=== PATIENT | male | born 1935 | race Hispanic/Latino ===

== ENCOUNTER 2017-05-24 10:59 | Emergency (ER) | payer MEDICARE, OTHER ==
[2017-05-24 11:36] VITALS: RESP 18; TEMP 98.6; O2SAT 98; BMI 26.6
--- NOTE | 2017-05-24 11:36 | ED PDOC ---
Arrival/HPI - General Chief Complaint: Abnormal Skin Integrity Time Seen by Provider: 05/24/17 11:27 Historian: Patient - History of Present Illness Narrative History of Present Illness (Text): 05/24/17 11:27 A 82 year old male, with no significant past medical history, is presenting to the emergency department with a wound to his right wrist. The patient reports that he tripped while at the gas station and scraped his wrist on the door. The patient denies severe pain to the wound, fever, chest pain, dizziness, or any other complaints at this time. 05/24/17 11:36 Time/Duration: Prior to Arrival Symptom Onset: Other Symptom Course: Unchanged Quality: Other Activities at Onset: Light Context: Walking, Tripped Past Medical History - Provider Review Nursing Documentation Reviewed: Yes - Infectious Disease Hx of Infectious Diseases: None - Tetanus Immunization Tetanus Immunization: Up to Date - Cardiac Hx Cardiac Disorders: Yes Hx Congestive Heart Failure: Yes Hx Hypertension: Yes - Pulmonary Hx Respiratory Disorders: No - Neurological Hx Neurological Disorder: No - HEENT Hx HEENT Disorder: Yes (wears glasses) - Renal Hx Renal Disorder: No - Endocrine/Metabolic Hx Endocrine Disorders: No - Hematological/Oncological Hx Blood Disorders: No - Integumentary Hx Dermatological Disorder: No - Musculoskeletal/Rheumatological Hx Musculoskeletal Disorders: Yes (NOSE FX) Hx Falls: Yes - Gastrointestinal Hx Gastrointestinal Disorders: Yes (right inguinal hernia) - Genitourinary/Gynecological Hx Genitourinary Disorders: Yes Hx Prostate Problems: Yes (prostate sx) - Psychiatric Hx Psychophysiologic Disorder: No Hx Depression: No Hx Emotional Abuse: No Hx Physical Abuse: No Hx Substance Use: No - Surgical History Hx Carotid Endarterectomy: Yes - Anesthesia Hx Anesthesia: Yes Hx Anesthesia Reactions: No Hx Malignant Hyperthermia: No - Suicidal Assessment Feels Threatened In Home Enviroment: No Family/Social History - Physician Review Nursing Documentation Reviewed: Yes Family/Social History: Unknown Family HX Smoking Status: Former Smoker Hx Alcohol Use: Yes (LAST DRINK WAS A CAN OF BEER 3 D AGO) Frequency of alcohol use: Socially Hx Substance Use: No Hx Substance Use Treatment: No Allergies/Home Meds Allergies/Adverse Reactions: Allergies No Known Allergies Allergy (Verified 12/22/16 17:13) Home Medications: Home Meds Medication Instructions Recorded Confirmed Rosuvastatin Calcium [Crestor] 10 mg PO DAILY 01/24/15 05/24/17 Propranolol [Inderal] 1 tab PO BID 05/24/17 05/24/17 Terazosin [Hytrin] 1 tab PO HS 05/24/17 05/24/17 Review of Systems - Physician Review All systems were reviewed & negative as marked: Yes - Review of Systems Constitutional: absent: Fevers Cardiovascular: absent: Chest Pain Neurological: absent: Dizziness Physical Exam Vital Signs Reviewed: Yes Vital Signs Temp Pulse Resp BP Pulse Ox 05/24/17 12:00 72 18 137/80 98 05/24/17 11:21 98.6 F 70 18 139/82 98 Temperature: Afebrile Blood Pressure: Normal Pulse: Regular Respiratory Rate: Normal Appearance: Positive for: Well-Appearing, Non-Toxic, Comfortable Pain Distress: None Mental Status: Positive for: Alert and Oriented X 3 - Systems Exam Head: Present: Atraumatic, Normocephalic Pupils: Present: PERRL Extroacular Muscles: Present: EOMI Conjunctiva: Present: Normal Mouth: Present: Moist Mucous Membranes Neck: Present: Normal Range of Motion Respiratory/Chest: Present: Clear to Auscultation, Good Air Exchange. No: Respiratory Distress, Accessory Muscle Use Cardiovascular: Present: Regular Rate and Rhythm, Normal S1, S2. No: Murmurs Abdomen: Present: Normal Bowel Sounds. No: Tenderness, Distention, Peritoneal Signs Back: Present: Normal Inspection Upper Extremity: Present: Normal Inspection, Other (Abrasion to the right wrist) . No: Cyanosis, Edema Lower Extremity: Present: Normal Inspection. No: Edema Neurological: Present: GCS=15, CN II-XII Intact, Speech Normal Skin: Present: Warm, Dry, Normal Color. No: Rashes Psychiatric: Present: Alert, Oriented x 3, Normal Insight, Normal Concentration Medical Decision Making ED Course and Treatment: 05/24/17 11:27 Impression: 82 year old male with wound to the right wrist. Differential Diagnosis included but are not limited to: Abrasion Plan: -- Reassess and disposition Prior Visits: Notes and results from previous visits were reviewed. On 12/22/16 patient was last seen in the emergency department for GI bleed and was hospitalized. Progress Notes: - Scribe Statement The provider has reviewed the documentation as recorded by the Alphonse Daniel Provider Scribe Attestation: All medical record entries made by the Scribe were at my direction and personally dictated by me. I have reviewed the chart and agree that the record accurately reflects my personal performance of the history, physical exam, medical decision making, and the department course for this patient. I have also personally directed, reviewed, and agree with the discharge instructions and disposition. Disposition/Present on Arrival - Present on Arrival Any Indicators Present on Arrival: No History of DVT/PE: No History of Uncontrolled Diabetes: No Urinary Catheter: No History of Decub. Ulcer: No History Surgical Site Infection Following: None - Disposition Have Diagnosis and Disposition been Completed?: Yes Diagnosis: Forearm abrasion Disposition: HOME/ ROUTINE Disposition Time: 11:30 Condition: GOOD Discharge Instructions (ExitCare): Abrasion (ED) Additional Instructions: Thank you for letting us take care of you today. Your provider was Dr. Mckinley. You were treated for forearm abrasion. The emergency medical care you received today was directed at your acute symptoms. If you were prescribed any medication, please fill it and take as directed. It may take several days for your symptoms to resolve. Return to the Emergency Department if your symptoms worsen, do not improve, or if you have any other problems. Please contact your doctor or call one of the physicians/clinics you have been referred to that are listed on the Patient Visit Information form that is included in your discharge packet. Bring any paperwork you were given at discharge with you along with any medications you are taking to your follow up visit. Our treatment cannot replace ongoing medical care by a primary care provider (PCP) outside of the emergency department. Thank you for allowing the [facility] team to be part of your care today. Keep the area clean and dry. Follow up with your doctor or the emergency room if you have any concerns. Referrals: [facility] Natty Reankita, [Primary Care Provider] - Follow up with primary
[2017-05-24 12:01] VITALS: BP 137/80; PULSE 72
== END 2017-05-24 12:01 | disposition home or self-care (01) ==
LOC: ED 10:59
DX: S50.811A Abrasion of right forearm, initial encounter (principal); W01.0XXA Fall on same level from slipping, tripping and stumbling without subsequent striking against object, initial encounter; Y93.01 Activity, walking, marching and hiking; Y92.524 Gas station as the place of occurrence of the external cause

== ENCOUNTER 2017-07-13 10:51 | Emergency (ER) | payer MEDICARE, OTHER ==
[2017-07-13 10:51] VITALS: BMI 25.4
[2017-07-13 11:02] VITALS: RESP 16; TEMP 97.8; O2SAT 98
--- NOTE | 2017-07-13 11:30 | ED PDOC ---
Arrival/HPI - General Chief Complaint: Trauma Time Seen by Provider: 07/13/17 11:26 Historian: Patient - History of Present Illness Narrative History of Present Illness (Text): 07/13/17 11:26 This 82 yo male presents to this ED c/o right knee pain, and left hand pain since yesterday. Patient stated he slipped and fell down on the floor. He said he was able to break the fall by placing hands down. He denies head injury , loc, dizziness, syncope, hip pain, or weakness. Time/Duration: Other (since yesterday) Quality: Aching Context: Home Past Medical History - Provider Review Nursing Documentation Reviewed: Yes - Infectious Disease Hx of Infectious Diseases: None - Tetanus Immunization Tetanus Immunization: Up to Date - Cardiac Hx Hypertension: Yes - Pulmonary Hx Chronic Obstructive Pulmonary Disease (COPD): Yes - Neurological Hx Neurological Disorder: No - HEENT Hx HEENT Disorder: Yes (wears glasses) - Renal Hx Renal Disorder: No - Endocrine/Metabolic Hx Endocrine Disorders: No - Hematological/Oncological Hx Blood Disorders: No - Integumentary Hx Dermatological Disorder: No - Musculoskeletal/Rheumatological Hx Musculoskeletal Disorders: Yes (NOSE FX) Hx Falls: Yes - Gastrointestinal Hx Gastrointestinal Disorders: Yes (right inguinal hernia) - Genitourinary/Gynecological Hx Genitourinary Disorders: Yes Hx Prostate Problems: Yes (prostate sx) - Psychiatric Hx Psychophysiologic Disorder: No Hx Depression: No Hx Emotional Abuse: No Hx Physical Abuse: No Hx Substance Use: No - Surgical History Hx Carotid Endarterectomy: Yes - Anesthesia Hx Anesthesia: Yes Hx Anesthesia Reactions: No Hx Malignant Hyperthermia: No - Suicidal Assessment Feels Threatened In Home Enviroment: No Family/Social History - Physician Review Nursing Documentation Reviewed: Yes Family/Social History: Other Smoking Status: Former Smoker Hx Alcohol Use: Yes (LAST DRINK WAS A CAN OF BEER 3 D AGO) Hx Substance Use: No Hx Substance Use Treatment: No Allergies/Home Meds Allergies/Adverse Reactions: Allergies No Known Allergies Allergy (Verified 07/13/17 11:02) Home Medications: Home Meds Medication Instructions Recorded Confirmed Rosuvastatin Calcium [Crestor] 10 mg PO DAILY 01/24/15 07/13/17 Propranolol [Inderal] 10 mg PO BID 05/24/17 07/13/17 Terazosin [Hytrin] 10 tab PO HS 05/24/17 07/13/17 Review of Systems - Review of Systems Constitutional: Normal. absent: Fatigue, Weight Change, Fevers Eyes: Normal ENT: Normal Respiratory: Normal. absent: SOB, Cough Cardiovascular: Normal. absent: Chest Pain, Palpitations Gastrointestinal: Normal. absent: Abdominal Pain, Nausea, Vomiting Genitourinary Male: Normal Musculoskeletal: Other (See hpi) Skin: Normal Neurological: Normal Endocrine: Normal Hemo/Lymphatic: Normal Psychiatric: Normal Physical Exam Vital Signs Temp Pulse Resp BP Pulse Ox 07/13/17 10:57 97.8 F 80 16 145/75 98 Temperature: Afebrile Blood Pressure: Normal Pulse: Regular Respiratory Rate: Normal Appearance: Positive for: Well-Appearing, Non-Toxic, Comfortable Pain Distress: None Mental Status: Positive for: Alert and Oriented X 3 - Systems Exam Head: Present: Atraumatic, Normocephalic, Other (no raccoon sign. nop bonner sign) Pupils: Present: PERRL Extroacular Muscles: Present: EOMI. No: Entrapment Conjunctiva: Present: Normal Ears: Present: Normal, NORMAL TM, Normal Canal, Other (no hemotympanum). No: Erythema Mouth: Present: Moist Mucous Membranes Pharnyx: Present: Normal. No: ERYTHEMA, EXUDATE, TONSILS ENLARGED Neck: Present: Normal Range of Motion. No: Meningeal Signs Respiratory/Chest: Present: Clear to Auscultation, Good Air Exchange. No: Respiratory Distress, Accessory Muscle Use Cardiovascular: Present: Regular Rate and Rhythm, Normal S1, S2. No: Murmurs Abdomen: Present: Normal Bowel Sounds. No: Tenderness, Distention, Peritoneal Signs Back: Present: Normal Inspection. No: CVA Tenderness, Midline Tenderness, Paraspinal Tenderness, Pain with Leg Raise Upper Extremity: Present: Normal Inspection, Normal ROM, NORMAL PULSES, Neurovascularly Intact, Capillary Refill < 2s, Other (Mild tenderness over the 1st metacarpal area. no ecchymosis or swelling). No: Cyanosis, Edema Lower Extremity: Present: NORMAL PULSES, Neurovascularly Intact, Capillary Refill < 2 s, Other ((+) righ knee is mild swollen, and tendern). No: Edema, CALF TENDERNESS Neurological: Present: GCS=15, CN II-XII Intact, Speech Normal, Motor Func Grossly Intact, Normal Sensory Function, Normal Cerebellar Funct, Gait Normal Skin: Present: Warm, Dry, Normal Color. No: Rashes Psychiatric: Present: Alert, Oriented x 3, Normal Insight, Normal Concentration Medical Decision Making ED Course and Treatment: 07/13/17 12:54 Re-evaluation. Patient feels better. Discussed results and plan with patient who expresses understanding. Counseling was provided regarding the diagnosis and prognosis. All questions answered and there is agreement with the plan to discharge home with instructions. Patient stable for discharge. Return if symptoms persist or worsen. Re-evaluation Time: 12:55 Reassessment Condition: Re-examined, Improved - RAD Interpretation Narrative RAD Interpretations (Text): 07/13/17 12:47 Accession No. : [id number] Patient Name / ID : JOHN MORELOS / [id number] Exam Date : 07/13/2017 12:10:05 ( Approved ) Study Comment : Sex / Age : M / 82Y Creator : Zohaib Arzola MD Dictator : Zohaib Arzola MD Skin Care Consultant : [employer] Rolling [employer] Operator : Zohaib Arzola MD Approver2 : Report Date : 07/13/2017 12:44:13 My Comment : PROCEDURE: Radiographs of the Lumbar Spine. HISTORY: pain COMPARISON: No prior. FINDINGS: BONES: Normal alignment. No listhesis. No fracture. DISC SPACES: Unremarkable. OTHER FINDINGS: None. IMPRESSION: Unremarkable radiographs of the lumbar spine. 07/13/17 12:48 [employer] Rolling Mill Operator : Zohaib Arzola MD Approver2 : Report Date : 07/13/2017 12:42:50 My Comment : PROCEDURE: Right Knee Radiographs. HISTORY: pain COMPARISON: None. FINDINGS: BONES: Normal. No fracture. 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 JOINT EFFUSION: None. OTHER FINDINGS: None. 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 07/13/17 12:48 Creator : Zohaib Arzola MD Dictator : Zohaib Arzola MD Skin Care Consultant : [employer] Rolling [employer] Operator : Zohaib Arzola MD Approver2 : Report Date : 07/13/2017 12:41:44 My Comment : PROCEDURE: Left Hand Radiographs. HISTORY: pain COMPARISON: None. FINDINGS: BONES: Normal. No fracture. JOINTS: Degenerative changes are seen at the base of the thumb SOFT TISSUES: Normal. OTHER FINDINGS: None. IMPRESSION: Degenerative changes at the base of the thumb Radiology Orders: 07/13/17 11:35 KNEE W PATELLA RIGHT 3 VIEW [RAD] Stat LS SPINE WITH OBL > 18 YRS OLD [RAD] Stat 07/13/17 11:36 HAND LEFT 3 VIEWS ROUTINE [RAD] Stat Disposition/Present on Arrival - Present on Arrival Any Indicators Present on Arrival: No History of DVT/PE: No History of Uncontrolled Diabetes: No Urinary Catheter: No History of Decub. Ulcer: No History Surgical Site Infection Following: None - Disposition Have Diagnosis and Disposition been Completed?: Yes Diagnosis: Effusion, right knee, Knee pain, Back pain, Hand pain, left Disposition: HOME/ ROUTINE Disposition Time: 12:57 Patient Plan: Discharge Condition: GOOD Discharge Instructions (ExitCare): Swollen Knee Joint (ED), Knee Pain (ED) Additional Instructions: Call Dr. morton Orthopedist for follow up visit in 1-2 days, you may need an MRI. Keep knee elevated, ice, rest. Return to emergency if symptoms worsen. Referrals: PCP,NO [Primary Care Provider] - Follow up with primary Zohaib Morton DO [Staff Provider] - Follow up with primary Forms: [employer] (Nepali)
--- NOTE | 2017-07-13 12:43 | RAD ---
PROCEDURE: Left Hand Radiographs. HISTORY: pain COMPARISON: None. FINDINGS: BONES: Normal. No fracture. JOINTS: Degenerative changes are seen at the base of the thumb SOFT TISSUES: Normal. OTHER FINDINGS: None. IMPRESSION: Degenerative changes at the base of the thumb
--- NOTE | 2017-07-13 12:44 | RAD ---
PROCEDURE: Right Knee Radiographs. HISTORY: pain COMPARISON: None. FINDINGS: BONES: Normal. No fracture. 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 JOINT EFFUSION: None. OTHER FINDINGS: None. 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
--- NOTE | 2017-07-13 12:46 | RAD ---
PROCEDURE: Radiographs of the Lumbar Spine. HISTORY: pain COMPARISON: No prior. FINDINGS: BONES: Normal alignment. No listhesis. No fracture. DISC SPACES: Unremarkable. OTHER FINDINGS: None. IMPRESSION: Unremarkable radiographs of the lumbar spine.
[2017-07-13 13:08] VITALS: BP 148/81; PULSE 82
== END 2017-07-13 13:14 | disposition home or self-care (01) ==
LOC: ED 10:51
DX: M25.461 Effusion, right knee (principal); M25.561 Pain in right knee; M79.642 Pain in left hand; M54.9 Dorsalgia, unspecified

== ENCOUNTER 2017-07-14 22:16 | Emergency (ER) | payer MEDICARE, OTHER ==
[2017-07-14 22:18] VITALS: BMI 27.3
[2017-07-14 22:46] VITALS: TEMP 97.6
--- NOTE | 2017-07-15 00:42 | CT ---
EXAM: CT Lumbar Spine Without Intravenous Contrast CLINICAL HISTORY: 82 years old, male; Pain; Low back pain; Additional info: Low back pain, S/P fall TECHNIQUE: Axial computed tomography images of the lumbar spine without intravenous contrast. All CT scans at this facility use one or more dose reduction techniques, viz.: automated exposure control; ma/kV adjustment per patient size (including targeted exams where dose is matched to indication; i.e. head); or iterative reconstruction technique. Coronal and sagittal reformatted images were created and reviewed. COMPARISON: DX - LS SPINE WITH OBL > 18 YRS OLD 07/13/2017 12:10:05 PM FINDINGS: Vertebrae: No acute fracture. Degenerative anterolisthesis of L4 on L5. Minimal scoliosis. Facet osteoarthrosis within lower lumbar spine. Discs/spinal canal/neural foramina: Mild spondylosis. Disc herniations at few levels, suboptimally evaluated. Moderate central canal stenosis at L4-L5 level. Other bones/joints: Degenerative changes of LEFT hip joint. Soft tissues: Unremarkable. Vasculature: Atherosclerotic disease of visualized arteries. 2.4 cm infrarenal abdominal aortic aneurysm. Kidneys and ureters: Few too small to characterize lesions within RIGHT kidney. Reproductive: Enlarged prostate gland. IMPRESSION: 1. No fracture. 2. Incidental/non-acute findings are described above.
--- NOTE | 2017-07-15 00:55 | ED PDOC ---
Arrival/HPI <WooEverette palafox - Last Filed: 07/15/17 01:25> - General Historian: Patient - History of Present Illness Time/Duration: Other (yesterday ) Symptom Onset: Sudden Severity Level: Mild Context: Other (fall ) <Perri Griggs PA-C - Last Filed: 07/15/17 01:59> - General Chief Complaint: Back Pain Time Seen by Provider: 07/14/17 23:03 - History of Present Illness Narrative History of Present Illness (Text): 07/15/17 00:50 Lowell Cortez is a 82 year old male who presents to the emergency department complaining of left lower back pain which intermittently radiates to left leg while going to sleep tonight. He was evaluated earlier yesterday at [facility] for evaluation s/p slip and fall landing forward on legs and hands. States pain is worse with movement and bending forward. Denies any fever, chills, headache, dizziness,chest pain, shortness of breath, nausea, vomiting, diarrhea, urinary incontinence, or any other complaints at this time. (Perri Griggs PA-C) Past Medical History - Provider Review Nursing Documentation Reviewed: Yes - Infectious Disease Hx of Infectious Diseases: None - Tetanus Immunization Tetanus Immunization: Up to Date - Cardiac Hx Hypertension: Yes - Pulmonary Hx Chronic Obstructive Pulmonary Disease (COPD): Yes - Neurological Hx Neurological Disorder: No - HEENT Hx HEENT Disorder: Yes (wears glasses) - Renal Hx Renal Disorder: No - Endocrine/Metabolic Hx Endocrine Disorders: No - Hematological/Oncological Hx Blood Disorders: No - Integumentary Hx Dermatological Disorder: No - Musculoskeletal/Rheumatological Hx Musculoskeletal Disorders: Yes (NOSE FX) Hx Falls: Yes - Gastrointestinal Hx Gastrointestinal Disorders: Yes (right inguinal hernia) - Genitourinary/Gynecological Hx Genitourinary Disorders: Yes Hx Prostate Problems: Yes (prostate sx) - Psychiatric Hx Psychophysiologic Disorder: No Hx Depression: No Hx Emotional Abuse: No Hx Physical Abuse: No Hx Substance Use: No - Surgical History Hx Carotid Endarterectomy: Yes - Anesthesia Hx Anesthesia: Yes Hx Anesthesia Reactions: No Hx Malignant Hyperthermia: No - Suicidal Assessment Feels Threatened In Home Enviroment: No <Perri Griggs PA-C - Last Filed: 07/15/17 01:59> Family/Social History - Physician Review Nursing Documentation Reviewed: Yes Family/Social History: No Known Family HX Smoking Status: Former Smoker Hx Alcohol Use: Yes (LAST DRINK WAS A CAN OF BEER 3 D AGO) Hx Substance Use: No Hx Substance Use Treatment: No <Perri Griggs PA-C - Last Filed: 07/15/17 01:59> Allergies/Home Meds <Everette Berkowitz - Last Filed: 07/15/17 01:25> <Perri Griggs PA-C - Last Filed: 07/15/17 01:59> Allergies/Adverse Reactions: Allergies No Known Allergies Allergy (Verified 07/13/17 11:02) Home Medications: Home Meds Medication Instructions Recorded Confirmed Rosuvastatin Calcium [Crestor] 10 mg PO DAILY 01/24/15 07/14/17 Propranolol [Inderal] 10 mg PO BID 05/24/17 07/14/17 Terazosin [Hytrin] 10 tab PO HS 05/24/17 07/14/17 Review of Systems - Physician Review All systems were reviewed & negative as marked: Yes - Review of Systems Constitutional: Normal. absent: Fatigue, Fevers Respiratory: Normal. absent: SOB, Cough, Sputum Musculoskeletal: Back Pain (left lower back pain, radiating to left leg ) Neurological: Normal <Perri Griggs PA-C - Last Filed: 07/15/17 01:59> Physical Exam Vital Signs Reviewed: Yes Temperature: Afebrile Blood Pressure: Normal Pulse: Regular Respiratory Rate: Normal Appearance: Positive for: Well-Appearing, Non-Toxic, Comfortable Pain Distress: None Mental Status: Positive for: Alert and Oriented X 3 - Systems Exam Head: Present: Atraumatic, Normocephalic Pupils: Present: PERRL Conjunctiva: Present: Normal Mouth: Present: Moist Mucous Membranes Respiratory/Chest: Present: Clear to Auscultation, Good Air Exchange. No: Respiratory Distress, Accessory Muscle Use Cardiovascular: Present: Regular Rate and Rhythm, Normal S1, S2. No: Murmurs Abdomen: Present: Normal Bowel Sounds. No: Tenderness, Distention, Peritoneal Signs Back: Present: Paraspinal Tenderness (point tenderness to left paralumbar region ) Upper Extremity: Present: Normal Inspection. No: Cyanosis, Edema Lower Extremity: Present: Normal Inspection, NORMAL PULSES, Normal ROM. No: Edema, CALF TENDERNESS Neurological: Present: GCS=15, CN II-XII Intact, Speech Normal Skin: Present: Warm, Dry, Normal Color. No: Rashes Psychiatric: Present: Alert, Oriented x 3, Normal Insight, Normal Concentration <Perri Griggs PA-C - Last Filed: 07/15/17 01:59> Vital Signs Temp Pulse Resp BP Pulse Ox 07/14/17 22:45 97.6 F 77 16 140/66 100 Medical Decision Making <Everette Berkowitz - Last Filed: 07/15/17 01:25> <Perri Griggs PA-C - Last Filed: 07/15/17 01:59> ED Course and Treatment: 07/15/17 00:56 Impression: A 82 year old male who presents to the emergency department complaining of left lower back pain s/p fall. Plan: -- CT lumbar -- Ultram -- Reassess and disposition Progress Notes: On re-evaluation, patient reports improvement of pain, laying in bed comfortably in no acute distress. Able to get up and out of bed on his own without assistance, and is ambulatory with a steady gait in the ER. CT results d /w the patient in great detail, notified of likely diagnosis of sciatica. Rxs provided. Advised to follow up with primary care physician and ortho referral in 1-2 days without fail. Advised to take medication as prescribed. Return to the emergency room at any time for any new or worsening symptoms. Patient states he fully agrees with and understands discharge instructions. States that he agrees with the plan and disposition. Verbalized and repeated discharge instructions and plan. I have given the patient opportunity to ask any additional questions. (Perri Griggs PA-C) - RAD Interpretation Narrative RAD Interpretations (Text): 07/15/17 01:04 CT L spine : FINDINGS: Vertebrae: No acute fracture. Degenerative anterolisthesis of L4 on L5. Minimal scoliosis. Facet osteoarthrosis within lower lumbar spine. Discs/spinal canal/neural foramina: Mild spondylosis. Disc herniations at few levels, suboptimally evaluated. Moderate central canal stenosis at L4-L5 level. Other bones/joints: Degenerative changes of LEFT hip joint. Soft tissues: Unremarkable. Vasculature: Atherosclerotic disease of visualized arteries. 2.4 cm infrarenal abdominal aortic aneurysm. Kidneys and ureters: Few too small to characterize lesions within RIGHT kidney. Reproductive: Enlarged prostate gland. IMPRESSION: 1. No fracture. 2. Incidental/non-acute findings are described above. Signed By: Alfonso Galan MD Date Signed: 41 Transcribed By: KIMBERLY Transcribe Date/Time : 07/15/1741 (Perri Griggs PA-C) Radiology Orders: 07/14/17 23:37 LUMBAR SPINE W/O CONTRAST [CT] Stat - Medication Orders Current Medication Orders: Discontinued Medications Tramadol HCl (Ultram) 50 mg PO STAT STA Stop: 07/14/17 23:38 Last Admin: 07/14/17 23:47 Dose: 50 mg - PA / [employer] / Resident Statement KAY has reviewed & agrees with the documentation as recorded. KAY has examined the patient and agrees with the treatment plan. <Everette Berkowitz - Last Filed: 07/15/17 01:25> - PA / [employer] / Resident Statement KAY has reviewed & agrees with the documentation as recorded. <Perri Griggs PA-C - Last Filed: 07/15/17 01:59> Disposition/Present on Arrival <Everette Berkowitz - Last Filed: 07/15/17 01:25> - Present on Arrival Any Indicators Present on Arrival: No History of DVT/PE: No History of Uncontrolled Diabetes: No Urinary Catheter: No History of Decub. Ulcer: No History Surgical Site Infection Following: None - Disposition Have Diagnosis and Disposition been Completed?: Yes Disposition Time: 01:00 <Perri Griggs PA-C - Last Filed: 07/15/17 01:59> - Disposition Diagnosis: Sciatica Disposition: HOME/ ROUTINE Patient Problems: Current Active Problems Problem Status Onset Sciatica Acute Condition: IMPROVED Discharge Instructions (ExitCare): Sciatica (ED) Print Language: JAMAICAN Additional Instructions: Thank you for letting us take care of you today. You were treated for sciatica. The emergency medical care you received today was directed at your acute symptoms. If you were prescribed any medication, please fill it and take as directed. It may take several days for your symptoms to resolve. Return to the Emergency Department if your symptoms worsen, do not improve, or if you have any other problems. Please contact your doctor in 2 days for re-evaluation and follow up / or call one of the physicians/clinics you have been referred to that are listed on the Patient Visit Information form that is included in your discharge packet. Bring any paperwork you were given at discharge with you along with any medications you are taking to your follow up visit. Our treatment cannot replace ongoing medical care by a primary care provider (PCP) outside of the emergency department. Thank you for allowing the [facility] team to be part of your care today. If you had an X-Ray or CT scan: A Radiologist will review the ED reading if any change in treatment is needed we will contact you. Prescriptions: Cyclobenzaprine [Cyclobenzaprine HCl] 10 mg PO TID PRN #15 tab PRN Reason: Muscle Spasm traMADol [Ultram] 50 mg PO TID #15 tab Referrals: Ammon Munoz III, MD [Medical Doctor] - Follow up with primary Quincy Cervantes MD [Primary Care Provider] - Follow up with primary Forms: [employer] (Yakut)
[2017-07-15 02:00] VITALS: BP 135/67; PULSE 69; RESP 17; O2SAT 99
== END 2017-07-15 01:59 | disposition home or self-care (01) ==
LOC: ED 22:16
DX: M54.30 Sciatica, unspecified side (principal)

== ENCOUNTER 2017-09-29 14:40 | Observation (INO) | payer MEDICARE, OTHER ==
--- NOTE | 2017-09-29 15:31 | ED PDOC ---
Arrival/HPI - General Chief Complaint: GI Problem Time Seen by Provider: 09/29/17 14:56 Historian: Patient - History of Present Illness Time/Duration: Other (Yesterday) Symptom Onset: Sudden Symptom Course: Unchanged Severity Level: Mild Associated Symptoms (Text): 09/29/17 15:26 Patient reports blood in his bowels yesterday and again today. He denies any abdominal pain nausea vomiting or diarrhea. No chest pain palpitations or dyspnea. No dizziness or lightheadedness. History of a bleeding ulcer diagnosed last spring. He takes 1 daily baby aspirin. Past Medical History - Infectious Disease Hx of Infectious Diseases: None - Tetanus Immunization Tetanus Immunization: Up to Date - Cardiac Hx Hypertension: Yes - Pulmonary Hx Chronic Obstructive Pulmonary Disease (COPD): Yes - Neurological Hx Neurological Disorder: No - HEENT Hx HEENT Disorder: Yes (wears glasses) - Renal Hx Renal Disorder: No - Endocrine/Metabolic Hx Endocrine Disorders: No - Hematological/Oncological Hx Blood Disorders: No - Integumentary Hx Dermatological Disorder: No - Musculoskeletal/Rheumatological Hx Musculoskeletal Disorders: Yes (NOSE FX) Hx Falls: Yes - Gastrointestinal Hx Gastrointestinal Disorders: Yes (right inguinal hernia) - Genitourinary/Gynecological Hx Genitourinary Disorders: Yes Hx Prostate Problems: Yes (prostate sx) - Psychiatric Hx Psychophysiologic Disorder: No Hx Substance Use: No - Surgical History Hx Carotid Endarterectomy: Yes - Anesthesia Hx Anesthesia: Yes Hx Anesthesia Reactions: No Hx Malignant Hyperthermia: No - Suicidal Assessment Feels Threatened In Home Enviroment: No Family/Social History - Physician Review Nursing Documentation Reviewed: Yes Family/Social History: Unknown Family HX Smoking Status: Former Smoker Hx Alcohol Use: Yes Frequency of alcohol use: Daily Hx Substance Use: No Hx Substance Use Treatment: No Allergies/Home Meds Allergies/Adverse Reactions: Allergies No Known Allergies Allergy (Verified 09/29/17 15:19) Home Medications: Home Meds Medication Instructions Recorded Confirmed Unobtainable 09/29/17 09/29/17 Review of Systems - Physician Review All systems were reviewed & negative as marked: Yes - Review of Systems Constitutional: Normal Respiratory: Normal Gastrointestinal: Hematochezia. absent: Abdominal Pain, Constipation, Diarrhea , Nausea, Vomiting, Appetite Changes, Hematemesis, Anorexia Genitourinary Male: absent: Dysuria, Frequency, Hematuria Neurological: absent: Headache, Dizziness, Focal Weakness Physical Exam Vital Signs Temp Pulse Resp BP Pulse Ox 09/29/17 15:17 97.5 F L 84 18 174/80 H 97 Temperature: Afebrile Blood Pressure: Hypertensive Pulse: Regular Respiratory Rate: Normal Appearance: Positive for: Well-Appearing, Non-Toxic, Comfortable Pain Distress: None Mental Status: Positive for: Alert and Oriented X 3 - Systems Exam Head: Present: Atraumatic, Normocephalic Pupils: Present: PERRL Extroacular Muscles: Present: EOMI Conjunctiva: Present: Normal Mouth: Present: Moist Mucous Membranes Pharnyx: No: ERYTHEMA, EXUDATE, TONSILS ENLARGED Neck: Present: Normal Range of Motion Respiratory/Chest: Present: Clear to Auscultation, Good Air Exchange, Decreased Breath Sounds. No: Respiratory Distress, Accessory Muscle Use Cardiovascular: Present: Regular Rate and Rhythm, Normal S1, S2. No: Murmurs Abdomen: Present: Normal Bowel Sounds. No: Tenderness, Distention, Peritoneal Signs, Rebound, Guarding Rectal: Present: Occult Blood, Melena, Normal Rectal Tone. No: Rectal Tenderness, Gross Blood, Hemorrhoids, Fissures, Nodule/Mass/Lesions Upper Extremity: Present: Normal Inspection. No: Cyanosis, Edema Lower Extremity: Present: Normal Inspection. No: Edema Neurological: Present: GCS=15, CN II-XII Intact, Speech Normal, Motor Func Grossly Intact Skin: Present: Warm, Dry, Normal Color. No: Rashes Psychiatric: Present: Alert, Oriented x 3, Normal Insight, Normal Concentration Medical Decision Making ED Course and Treatment: 09/29/17 15:50 EKG shows normal sinus rhythm rate approximately [address] or T-wave changes. 09/29/2017 15:53 Chest X-ray IMPRESSION: No active disease. Dictator: Zohaib Morris MD - Lab Interpretations Lab Results: 09/29/17 16:42 09/29/17 16:42 Lab Results 09/29/17 16:42: Blood Type B POSITIVE, Antibody Screen Negative, BBK History Checked Patient has bt 09/29/17 16:42: Sodium 140, Potassium 4.9, Chloride 104, Carbon Dioxide 29, Anion Gap 11, BUN 27 H, Creatinine 1.1, Est GFR ( Amer) > 60, Est GFR ( Non-Af Amer) > 60, Random Glucose 97, Calcium 9.0, Total Bilirubin 0.8, AST 22, ALT 29, Alkaline Phosphatase 51, Lactate Dehydrogenase 387, Total Creatine Kinase 39, Troponin I < 0.01 D, Total Protein 6.4, Albumin 3.6, Globulin 2.9, Albumin/Globulin Ratio 1.2, Amylase 58, Lipase 43 09/29/17 16:42: PT 12.9 H, INR 1.18 H, APTT 31.4 09/29/17 16:42: WBC 4.8, RBC 3.51, Hgb 10.7 L, Hct 32.2 L, MCV 91.7, MCH 30.5, MCHC 33.2, RDW 13.6, Plt Count 244, MPV 8.6, Gran % 66.4, Lymph % (Auto) 22.1, Edgar % (Auto) 9.4 H, Eos % (Auto) 1.7, Baso % (Auto) 0.4, Gran # 3.19, Lymph # 1.1 L, Edgar # 0.5, Eos # 0.1, Baso # 0.02 - RAD Interpretation Radiology Orders: 09/29/17 15:32 CHEST PORTABLE [RAD] Stat Chest 1 view shows no infiltrate effusion or cardiomegaly Production Control Manager: Radiologist - Medication Orders Current Medication Orders: Discontinued Medications Pantoprazole Sodium (Protonix Inj) 80 mg IVP STAT STA Stop: 09/29/17 15:32 Disposition/Present on Arrival - Present on Arrival Any Indicators Present on Arrival: No History of DVT/PE: No History of Uncontrolled Diabetes: No Urinary Catheter: No History of Decub. Ulcer: No History Surgical Site Infection Following: None - Disposition Have Diagnosis and Disposition been Completed?: Yes Diagnosis: Gastrointestinal hemorrhage, Anemia Disposition: HOSPITALIZED Disposition Time: 18:12 Patient Plan: Observation Condition: GOOD Referrals: [facility] Natty Dee, [Primary Care Provider] - Follow up with primary Forms: [employer] (Lao)
--- NOTE | 2017-09-29 15:55 | RAD ---
HISTORY: GIB COMPARISON: 12/22/2016 FINDINGS: LUNGS: No active pulmonary disease. PLEURA: No significant pleural effusion identified, no pneumothorax apparent. CARDIOVASCULAR: Normal. OSSEOUS STRUCTURES: No significant abnormalities. VISUALIZED UPPER ABDOMEN: Normal. OTHER FINDINGS: None. IMPRESSION: No active disease.
[2017-09-29 17:09] LABS: ALB/GLOB RATIO 1.2 (1.1-1.8); ALKALINE PHOSPHATASE 51 U/L (38-126); ALT/SGPT 29 U/L (7-56); AMYLASE 58 U/L (35-125); AST/SGOT 22 U/L (17-59); BILIRUBIN,TOTAL 0.8 mg/dL (0.2-1.3); BLOOD UREA NITROGEN 27 mg/dL (7-21); CARBON DIOXIDE 29 mmol/L (21-33); CHLORIDE 104 mmol/L (98-107); GFR AFRICAN-AMERICAN > 60; GLUCOSE,RANDOM 97 mg/dL (70-110); LIPASE 43 U/L (23-300); POTASSIUM 4.9 mmol/L (3.6-5.0); SODIUM 140 mmol/L (132-148); TOTAL PROTEIN 6.4 g/dL (5.8-8.3)
[2017-09-29 17:19] LABS: TROPONIN I < 0.01 ng/mL
[2017-09-29 17:28] LABS: BASO # 0.02 K/mm3 (0.0-2.0); BASO % 0.4 % (0.0-3.0); EOS # 0.1 (0.0-0.7); EOS % 1.7 % (1.5-5.0); GRAN # 3.19 (1.4-6.5); GRAN % 66.4 % (50.0-68.0); HEMATOCRIT 32.2 % (42.0-52.0); LYMPH # 1.1 (1.2-3.4); LYMPH % 22.1 % (22.0-35.0); MEAN CELL VOLUME 91.7 fl (80.0-105.0); MEAN CORPUSCULAR HEMOGLOBIN 30.5 pg (25.0-35.0); MEAN CORPUSCULAR HGB CONC 33.2 g/dl (31.0-37.0); MEAN PLATELET VOLUME 8.6 fl (7.0-11.0); MONO # 0.5 (0.1-0.6); MONO % 9.4 % (1.0-6.0); RED CELL DISTRIBUTION WIDTH 13.6 % (11.5-14.5); WHITE BLOOD COUNT 4.8 10^3/ul (4.5-11.0)
[2017-09-29 17:30] LABS: INR 1.18 (0.93-1.08); PARTIAL THROMBOPLASTIN TIME 31.4 Seconds (25.1-36.5)
[2017-09-29] MEDS: Sodium Chloride 0.9% 1,000 ML IV SCH (21:36)
[2017-09-29 21:53] LABS: IRON 47 ug/dL (45-180)
[2017-09-29 23:58] VITALS: BMI 25.1
--- NOTE | 2017-09-30 00:05 | CP.PCM.PN ---
Subjective - Date & Time of Evaluation Date of Evaluation: 09/30/17 Time of Evaluation: 00:03 - Subjective Subjective: Patient was seen for elevated blood pressure,176/82 States that he feels slight discomfort in head. Denies dizziness, nausea, weakness , paraesthesia. Medical record was reviewed.. This 82 year old white male was admitted for GI hemorrhage, anemia. Has PMH of HTN,CAD, S/P cardiac cath, HLD, venous stasis, obstructive uropathy, BPH,fracture nose. Objective - Vital Signs/Intake and Output Vital Signs (last 24 hours): Temp Pulse Resp BP Pulse Ox 98 F 75 20 176/82 H 100 09/30/17 00:00 09/30/17 00:00 09/30/17 00:00 09/30/17 00:00 09/30/17 00:00 Intake and Output: 09/29/17 09/30/17 18:59 06:59 Intake Total 240 Balance 240 - Medications Medications: Current Medications Sodium Chloride (Sodium Chloride 0.9%) 1,000 mls @ 40 mls/hr IV .Q24H PHILIP Last Admin: 09/29/17 21:36 Dose: 40 mls/hr Pantoprazole Sodium (Protonix Inj) 40 mg IVP DAILY PHILIP Propranolol HCl (Inderal) 10 mg PO TID PHILIP Tamsulosin HCl (Flomax) 0.4 mg PO DAILY PHILIP - Labs Labs: PT 12.9 SECONDS (9.4-12.5) H 09/29/17 16:42 INR 1.18 (0.93-1.08) H 09/29/17 16:42 APTT 31.4 Seconds (25.1-36.5) 09/29/17 16:42 Assessment and Plan - Assessment and Plan (Free Text) Assessment: Elevated blood pressure reading. HTN. GI hemorrhage. Anemia. CAD. BPH. HLD. Plan: Inderal 10 mg PO stat. Continue present management as suggested by PMD.
[2017-09-30 00:42] LABS: URINE BILIRUBIN NEGATIVE (NEGATIVE); URINE BLOOD NEGATIVE (NEGATIVE); URINE GLUCOSE (UA) NEGATIVE (NEGATIVE); URINE KETONE 15 mg/dL (NEGATIVE); URINE LEUKOCYTE ESTERASE NEGATIVE Leu/uL (NEGATIVE); URINE PROTEIN NEGATIVE mg/dL (<30 mg/dL); URINE UROBILINOGEN 0.2 E.U./dL (<1 E.U./dL)
[2017-09-30 00:45] LABS: URINE APPEARANCE CLEAR (CLEAR); URINE COLOR YELLOW (YELLOW)
[2017-09-30 07:01] LABS: HEMATOCRIT 29.7 % (42.0-52.0); MEAN CELL VOLUME 90.8 fl (80.0-105.0); MEAN PLATELET VOLUME 8.4 fl (7.0-11.0); RED CELL DISTRIBUTION WIDTH 13.3 % (11.5-14.5); WHITE BLOOD COUNT 3.6 10^3/ul (4.5-11.0)
--- NOTE | 2017-09-30 14:15 | CON ---
DATE: 09/30/2017 GASTROENTEROLOGY CONSULTATION REQUESTING PHYSICIAN: Milagro Devlin MD REASON FOR CONSULTATION: I have been asked to see this 82-year-old male with known history of gastric ulcer, hypertension, COPD, who comes to the hospital with 2 days of melena, starting on 09/27/2017 and lasting for 2 days. The patient presented with GI bleeding back in December 2016. At that time, he had an upper endoscopy which revealed gastric ulcers, which were not bleeding at the time of endoscopy, benign colon polyp and some nonspecific proctitis with internal hemorrhoids. He currently denies any rectal bleeding, chest pain, cough, shortness of breath or abdominal pain. His count did drop about 1 g from mid 10 g range to the 9 g range. He denies any rectal bleeding. The patient was recently placed on aspirin several months ago. PAST MEDICAL HISTORY: Notable for gastric ulcer, COPD, hypertension, prostatic enlargement. PAST SURGICAL HISTORY: Notable for carotid endarterectomy, prostate surgery. SOCIAL HISTORY: The patient is a former cigarette smoker. He quit several years ago. He consumes alcohol on a social basis. FAMILY HISTORY: Noncontributory. REVIEW OF SYSTEMS: 14-point review of systems is notable for melena. MEDICATIONS: At home include, Ecotrin and propranolol. PHYSICAL EXAMINATION: GENERAL: Well-developed male, lying in bed, in no acute distress. VITAL SIGNS: Reveal temperature of 98.4, blood pressure 152/75, heart rate is 70. HEENT: Reveal sclerae to be white. Conjunctivae pale. NECK: Supple. CHEST: Reveal lungs to be clear. HEART: Exam reveals regular rate and rhythm. ABDOMEN: Soft, nontender. No mass. EXTREMITIES: Show no edema. LABORATORY DATA: Reveal white blood cell count 3.6, hemoglobin 9.8. Chemistries reveal BUN 27, creatinine 1.1, percent saturation iron is 17. AST, ALT, alkaline phosphatase were all normal. IMPRESSION: An 82-year-old male with melena and anemia. The patient was started on aspirin approximately 2 months ago. He was admitted to the hospital in December 2016 for gastrointestinal bleeding and was found to have gastric ulcers. RECOMMENDATIONS: 1. Continue IV Protonix. 2. I will schedule the patient for an upper endoscopy for the morning. 3. Follow CBC. Jonh Duncan MD [facility] # [id number]
--- NOTE | 2017-09-30 20:08 | CARD ---
APPROVED REPORT EKG Measurement Heart [id number] <Conclusion> Normal sinus rhythm ST abnormality, possible digitalis effect Abnormal ECG
--- NOTE | 2017-09-30 22:19 | CON ---
DATE: 09/30/2017 REASON FOR THE CONSULTATION: GI bleed, cardiac evaluation, history of hypertension, and hyperlipidemia. BRIEF CLINICAL HISTORY: This is an 82-year-old male, with past medical history significant for BPH, COPD, hypertension, hyperlipidemia, came in because of black tarry stool. Denies any kassandra blood, but black tarry stools for 3 to 4 hours. Denies any chest pain, shortness of breath, or any palpitation. PAST MEDICAL HISTORY: Significant for BPH, COPD, dyslipidemia, hypertension, and history of GI bleed in the past. PAST SURGICAL HISTORY: Significant for GI problem. FAMILY HISTORY: Mother at the age of 89. Father had stomach problem. SOCIAL HISTORY: Drinks socially. Quit smoking 22 years ago. Used to smoke 2-1/2 pack a day. ALLERGIES: NO KNOWN DRUG ALLERGIES. CURRENT MEDICATIONS: The patient is taking at home aspirin 81 mg daily, propranolol 10 mg 3 times a day for palpitation. REVIEW OF SYSTEMS: As per HPI. PHYSICAL EXAMINATION: VITAL SIGNS: As follows; temperature afebrile, heart rate 70, blood pressure 152/75. HEENT: PERRLA, intact. NECK: Supple. No carotid bruits or thyromegaly. CHEST: Clear to auscultation. HEART: S1 and S2 regular. ABDOMEN: Soft. EXTREMITIES: Clubbing, cyanosis negative. LABORATORY DATA: Blood workup as follows; WBC 3.6, hemoglobin is 9.8, hematocrit 29.7, and platelets count 206. Chemistry shows sodium 140, potassium 4.9, chloride 104, carbon dioxide 29, anion gap of 11, BUN 26, creatinine 1.1, troponin is 0.01. Previous cardiac workup as follows: The patient had stress test on 06/25/2017 that showed normal myocardial perfusion study, ejection fraction 55%. When compared to 09/28/2014, no significant change. The patient has also echocardiogram reviewed. IMPRESSION: Gastrointestinal bleed, hypertension, hyperlipidemia, chronic obstructive pulmonary disease, and palpitation. RECOMMENDATION: We will start antihypertensive medication, lipid profile, TSH, hemoglobin A1c. Continue propranolol and put 10 mg of Norvasc, hemoglobin A1c. Review the previous most recent echo. We will follow with you. Thank you Dr. Devlin for providing us the opportunity in taking care of the patient, Diego Etienne. Quincy Arreola MD [facility] # [id number]
[2017-09-30] MEDS: Sodium Chloride 0.9% 1,000 ML IV SCH (22:51)
--- NOTE | 2017-10-01 02:05 | HP ---
CHIEF COMPLAINT AND HISTORY OF PRESENT ILLNESS: This is an 82-year-old male who comes into the hospital who reports that he had bloody bowel movement prior to coming into the ER. He says this morning that he had a 2 episodes. He denied any abdominal pain or nausea. The patient says he had no dizziness. He does have a history of bleeding ulcer and he did take aspirin. He had an endoscopy that was done by Dr. Duncan in the past. He denies any headaches or dizziness. No nausea. No vomiting. No fever, headaches, or chills. No weakness in the arms or the legs. His last endoscopy was in 12/2016; at that time, he had colonoscopy. The patient has no fever or chills. No nausea. No vomiting. PAST MEDICAL HISTORY: Gastric ulcers, COPD, hypertension, and BPH. SOCIAL HISTORY: He is a former smoker. He quit several years ago. He does consume alcohol socially. PAST SURGICAL HISTORY: Carotid endarterectomy and prostate surgery. ALLERGIES: HE HAS NO KNOWN DRUG ALLERGIES. HOME MEDICATIONS: Propanolol. PHYSICAL EXAMINATION: VITAL SIGNS: His temperature of 97.5, pulse of 84, respirations of 18, blood pressure of 175/80, and O2 saturation of 97%. GENERAL: The patient lying in bed, uncomfortable, and in no acute distress. HEENT: Atraumatic and normocephalic. Anicteric sclerae. Moist mucosa. Capron conjunctivae. No oral lesions. NECK: No JVD, anterior and posterior adenopathy, thyromegaly, or bruits. CARDIOVASCULAR: S1 and S2 regular. No murmur, rubs, or gallop. LUNGS: Clear to auscultation bilaterally. No wheezes, rales, or rhonchi. ABDOMEN: Bowel sounds are positive. Soft, nontender and nondistended. No hepatosplenomegaly. No rebound and no guarding. EXTREMITIES: No cyanosis, clubbing, or edema. NEUROLOGIC: No facial asymmetry. Tongue is midline. No uvula deviation. Power is 5/5 upper extremity and lower extremity. Sensation intact in upper extremity and lower extremity. PSYCHIATRIC: He is awake, alert and oriented x3. No anxiety or depression. He has normal affect. GENITOURINARY: No CVA tenderness. VASCULAR: 2+ pulses in the carotid pulses and pedal pulses. SKIN: No erythema or nodules. SPINE: Shows normal curvature. EXTREMITIES: No cyanosis and clubbing, no edema. DIAGNOSTIC DATA: His chest x-ray done shows no active disease. LABORATORY DATA: He had a hemoglobin of 10.7 and creatinine is 1.1. ASSESSMENT: 1. Rectal bleeding. 2. History of gastric ulcer. 3. Iron-deficiency anemia. 4. Dyslipidemia. 5. Hypertension. 6. History of aspirin use. PLAN: The patient is currently comfortable. He is placed on IV fluids. He was seen by Dr. Duncan. The patient is due to get an endoscopy scheduled for tomorrow. We will continue to follow his CBC. His repeat blood pressure is 152/75. He did have iron studies that showed iron saturation of 17% with ferritin of 43. The patient's troponin was negative. We will repeat his blood work tomorrow. He is on a liquid diet. We will continue the patient on IV Protonix. Milad He MD
[2017-10-01 06:10] LABS: BASO # 0.03 K/mm3 (0.0-2.0); BASO % 0.8 % (0.0-3.0); EOS # 0.2 (0.0-0.7); EOS % 4.3 % (1.5-5.0); GRAN # 2.33 (1.4-6.5); GRAN % 58.4 % (50.0-68.0); HEMATOCRIT 31.2 % (42.0-52.0); LYMPH % 25.4 % (22.0-35.0); MEAN CORPUSCULAR HEMOGLOBIN 30.3 pg (25.0-35.0); MEAN CORPUSCULAR HGB CONC 33.3 g/dl (31.0-37.0); MEAN PLATELET VOLUME 8.3 fl (7.0-11.0); MONO # 0.4 (0.1-0.6); MONO % 11.1 % (1.0-6.0); RED CELL DISTRIBUTION WIDTH 13.4 % (11.5-14.5)
[2017-10-01 07:52] LABS: ALB/GLOB RATIO 1.1 (1.1-1.8); ALKALINE PHOSPHATASE 42 U/L (38-126); ALT/SGPT 26 U/L (7-56); AST/SGOT 23 U/L (17-59); BILIRUBIN,TOTAL 0.7 mg/dL (0.2-1.3); BLOOD UREA NITROGEN 13 mg/dL (7-21); CALCIUM 8.6 mg/dL (8.4-10.5); CARBON DIOXIDE 28 mmol/L (21-33); CHLORIDE 108 mmol/L (98-107); CHOLESTEROL 119 mg/dL (130-200); GFR AFRICAN-AMERICAN > 60; GLUCOSE,RANDOM 89 mg/dL (70-110); MAGNESIUM 1.9 mg/dL (1.7-2.2); PHOSPHOROUS 2.9 mg/dL (2.5-4.5); POTASSIUM 4.4 mmol/L (3.6-5.0); SODIUM 141 mmol/L (132-148); TOTAL PROTEIN 5.9 g/dL (5.8-8.3)
[2017-10-01] MEDS ORDERED: Propofol 10 mg/ml Inj (20 ML) ONE (08:23)
[2017-10-01] MEDS ORDERED: Etomidate 20 mg/10ml Inj IV ONE ×2 (08:24→10:13)
[2017-10-01] MEDS ORDERED: Lactated Ringer's 1,000 ML IV SCH (09:00)
[2017-10-01 09:40] VITALS: TEMP 98
[2017-10-01] MEDS ORDERED: Lidocaine 2% Inj (20ml) ONE (10:13)
[2017-10-01] MEDS ORDERED: Sodium Chloride 0.9% 1,000 ML IV SCH (10:45)
[2017-10-01 11:03] VITALS: RESP 13; O2SAT 100
[2017-10-01 13:40] VITALS: BP 150/87; PULSE 67
--- NOTE | 2017-10-01 19:00 | PN ---
DATE: 10/01/2017 LOCATION: The patient is in room 564, bed 2. REASON FOR CONSULTATION: GI bleeding, cardiac evaluation, history of hypertension, and hyperlipidemia. BRIEF CLINICAL HISTORY: This is an 82-year-old male with past medical history significant for BPH, COPD, hypertension, and hyperlipidemia, admitted with black tarry stools. The patient denies any chest pain, shortness of breath or palpitation. The patient had today endoscopy, which showed gastric hiatal hernia. The patient is sitting in bed comfortably without any cardiac symptoms. PHYSICAL EXAMINATION: VITAL SIGNS: Blood pressure 148/68, respirations 16, pulse 60, and temperature 98. HEENT: Head is normocephalic. Eyes; pupils are normal. Conjunctivae slightly pale. NECK: JVP is low. Carotids equal. THORAX: AP diameter normal. LUNGS: Clear. CARDIOVASCULAR: S1 and S2. ABDOMEN: Soft. No tenderness. No organomegaly. Bowel sounds normal. EXTREMITIES: No clubbing. No cyanosis. LABORATORY DATA: WBC 4.0, hemoglobin 10.4, hematocrit 31.2, and platelets 204. Sodium 141, potassium 4.4, BUN 13, and creatinine 0.9. AST and ALT are normal. Total protein and albumin are normal. TSH of 1.70. DIAGNOSES: Gastrointestinal bleeding, hypertension, hyperlipidemia, chronic obstructive pulmonary disease, history of palpitation, and gastric hiatal hernia, status post endoscopy today. PLAN: The patient is on Flomax 0.4 daily, propranolol 10 mg t.i.d., and amlodipine 5 mg daily. The patient's blood pressure elevated, we changed amlodipine to 10 mg p.o. daily and we will give extra 5 mg now to make it today's dose also 10 mg, starting tomorrow will be 10 mg daily. We will follow with you. Quincy Cervantes MD
--- NOTE | 2017-10-02 03:39 | DS ---
COVERING FOR: Dr. Devlin HISTORY OF PRESENT ILLNESS: The patient is an 82-year-old who came to emergency room because of rectal bleeding. According to the patient, he has 2 episodes of rectal bleeding yesterday morning. Did not have any associated nausea, vomiting, or abdominal pain. No dizziness. No palpitation. No chest pain. The patient does have history of bleeding peptic ulcer in the remote past and he has endoscopy done by Dr. Duncan. The patient has an EGD this morning. PHYSICAL EXAMINATION: GENERAL: Today, he is awake, alert, oriented, and communicative. VITAL SIGNS: He is afebrile, pulse 56, respirations 13, and blood pressure 150/87. LUNGS: Bilateral good airflow. No rhonchi or crackle. HEART: S1 and S2 audible. ABDOMEN: Soft and nontender. No rebound. No guarding. NEUROLOGIC: The patient is awake, alert, oriented, and communicative. Moves all extremities. LABORATORY EXAM: WBC is 4.0, hemoglobin 10.4, hematocrit 31.2, and platelets 204. Chemistry; sodium 141, potassium 4.4, chloride 108, CO2 28, BUN 13, creatinine 0.9, and blood sugar of 89. His stool for Hemoccult was positive. Had endoscopy done by Dr. Duncan. Examined esophagus was found to be normal. Medium-size hiatal hernia. Esophagogastric landmarks are within normal range. Two medium-size bleeding erosions are found in the gastric body and biopsies were taken. Duodenum and gastric fundus are within normal limit. ASSESSMENT AND PLAN: 1. Nonbleeding erosive gastritis. 2. Anemia. 3. History of chronic obstructive pulmonary disease. 4. Hypertension. 5. Benign prostatic hypertrophy. 6. Hyperlipidemia. 7. Iron deficiency anemia. 8. Hiatal hernia. I spoke to Dr. Duncan. He is cleared to be discharged. The patient's hemoglobin is stable. His vitals are stable. He is being discharged home on Protonix 40 daily and he will continue aspirin. He will continue Inderal. He will follow up with his PMD and he will follow up with Dr. Duncan as outpatient. Juliette Segura MD
== END 2017-10-01 14:48 | disposition home or self-care (01) ==
LOC: ED 14:40 → ERH 18:10 → 5RNO 20:47
PROVIDERS: ADMIT Internal Medicine Nephrology; ATTEND Internal Medicine Nephrology
DX: K92.2 Gastrointestinal hemorrhage, unspecified (principal); K25.9 Gastric ulcer, unspecified as acute or chronic, without hemorrhage or perforation; E78.5 Hyperlipidemia, unspecified; I10 Essential (primary) hypertension; I25.10 Atherosclerotic heart disease of native coronary artery without angina pectoris; I87.8 Other specified disorders of veins; J44.9 Chronic obstructive pulmonary disease, unspecified; D50.9 Iron deficiency anemia, unspecified; K29.60 Other gastritis without bleeding; K44.9 Diaphragmatic hernia without obstruction or gangrene; N13.8 Other obstructive and reflux uropathy; N40.1 Benign prostatic hyperplasia with lower urinary tract symptoms; Z87.11 Personal history of peptic ulcer disease; Z87.891 Personal history of nicotine dependence; Z87.81 Personal history of (healed) traumatic fracture
CPT/HCPCS: 36415; 43239; 71010; 80053; 80061; 81003; 82150; 82550; 82728; 83036; 83540; 83550; 83615; 83690; 83735; 84100; 84443; 84484; 85025; 85027; 85610; 85730; 86850; 86900; 88305; 88342; 93005; 99284; C9113; G0328; G0378; J2001; J2704; J3010; J7040

== ENCOUNTER 2019-02-19 18:31 | Emergency (ER) | payer MEDICARE ==
[2019-02-19 18:48] VITALS: BMI 22.7
[2019-02-19 18:56] VITALS: RESP 18
--- NOTE | 2019-02-19 18:58 | ED PDOC ---
Arrival/HPI - General Chief Complaint: Trauma Time Seen by Provider: 02/19/19 18:32 Historian: Patient - History of Present Illness Narrative History of Present Illness (Text): 02/19/19 18:55 An 83 year old male, whose past medical history includes, GI bleed, anasarca, hypertension, dementia, presents to the emergency department s/p mechanical fall occurred patient was ambulating on his way from pharmacy when he fell backwards hitting his head. He was unable to get up on his own. EMS was called. He reports gradual onset of frontal headache. He denies fevers, chills, headache, dizziness, chest pain, shortness of breath, dyspnea on exertion, cough, abdominal pain, nausea, vomiting, diarrhea, back pain, neck pain, urinary/bowel changes, or any other complaint. PMD: Dr. Segura Time/Duration: Prior to Arrival Symptom Onset: Sudden Symptom Course: Unchanged Activities at Onset: Rest, Light Context: Home Past Medical History - Provider Review Nursing Documentation Reviewed: Yes - Infectious Disease Hx of Infectious Diseases: None - Tetanus Immunization Tetanus Immunization: Up to Date - Cardiac Hx Hypertension: Yes - Pulmonary Hx Chronic Obstructive Pulmonary Disease (COPD): Yes - Neurological Hx Neurological Disorder: No - HEENT Hx HEENT Disorder: Yes (wears glasses) - Renal Hx Renal Disorder: No - Endocrine/Metabolic Hx Endocrine Disorders: No - Hematological/Oncological Hx Blood Transfusions: No Hx Blood Transfusion Reaction: No - Integumentary Hx Dermatological Disorder: No - Musculoskeletal/Rheumatological Hx Falls: Yes (2 1/5 mos. ago) - Gastrointestinal Hx Gastrointestinal Disorders: Yes (right inguinal hernia) - Genitourinary/Gynecological Hx Genitourinary Disorders: Yes Hx Prostate Problems: Yes (prostate sx) - Psychiatric Hx Psychophysiologic Disorder: No Hx Substance Use: No - Surgical History Hx Inguinal Hernia Repair: Yes - Anesthesia Hx Anesthesia: Yes Hx Anesthesia Reactions: No Hx Malignant Hyperthermia: No - Suicidal Assessment Feels Threatened In Home Enviroment: No Family/Social History - Physician Review Nursing Documentation Reviewed: Yes Family/Social History: No Known Family HX Smoking Status: Former Smoker Hx Alcohol Use: No Hx Substance Use: No Hx Substance Use Treatment: No Allergies/Home Meds Allergies/Adverse Reactions: Allergies No Known Allergies Allergy (Verified 09/29/17 15:19) Home Medications: Home Meds Medication Instructions Recorded Confirmed Aspirin [Ecotrin] 81 mg PO DAILY 09/29/17 09/29/17 Propranolol [Inderal] 10 mg PO TID 09/29/17 09/29/17 Review of Systems - Physician Review All systems were reviewed & negative as marked: Yes - Review of Systems Constitutional: absent: Fevers Respiratory: absent: SOB, Cough Cardiovascular: absent: Chest Pain, STEPHENS Gastrointestinal: absent: Abdominal Pain, Constipation, Diarrhea, Nausea, Vomiting Genitourinary Male: absent: Urinary Output Changes Musculoskeletal: absent: Back Pain, Neck Pain Neurological: absent: Headache, Dizziness Physical Exam Vital Signs Reviewed: Yes Temperature: Afebrile Blood Pressure: Hypertensive Pulse: Regular Respiratory Rate: Normal Appearance: Positive for: Well-Appearing, Non-Toxic, Comfortable Pain Distress: None Mental Status: No: Alert and Oriented X 3 (Oriented x 2) - Systems Exam Head: Present: Atraumatic, Normocephalic Pupils: Present: PERRL Extroacular Muscles: Present: EOMI Conjunctiva: Present: Normal Mouth: Present: Moist Mucous Membranes Neck: Present: Normal Range of Motion. No: MIDLINE TENDERNESS Respiratory/Chest: Present: Clear to Auscultation, Good Air Exchange. No: Respiratory Distress, Accessory Muscle Use Cardiovascular: Present: Regular Rate and Rhythm, Normal S1, S2. No: Murmurs Abdomen: No: Tenderness, Distention, Peritoneal Signs Back: Present: Normal Inspection. No: Midline Tenderness Upper Extremity: Present: Normal Inspection. No: Cyanosis, Edema Lower Extremity: Present: Edema (+3 pitting edema. ) Neurological: Present: GCS=15, CN II-XII Intact, Speech Normal Skin: Present: Warm, Dry, Normal Color. No: Rashes Psychiatric: Present: Alert, Normal Insight, Normal Concentration. No: Oriented x 3 (Oriented x 2) Medical Decision Making ED Course and Treatment: 02/19/19 18:59 Impression: An 84 year old male presents to the emergency department s/p fall onto his back. Plan: -- Cervical Spine/ Head CT -- Chest X-ray -- EKG -- Labs -- Reassess and disposition Progress Notes: - Lab Interpretations I have reviewed the lab results: Yes - RAD Interpretation Radiology Orders: 02/19/19 18:51 CERVICAL SPINE W/O CONTRAST [CT] Stat HEAD W/O CONTRAST [CT] Stat CHEST PORTABLE [RAD] Stat - EKG Interpretation Interpreted by ED Physician: Yes Type: 12 lead EKG - Scribe Statement The provider has reviewed the documentation as recorded by the Ieshaibe Sandrine Del Valle Provider Ieshaibe Attestation: All medical record entries made by the Scribe were at my direction and personally dictated by me. I have reviewed the chart and agree that the record accurately reflects my personal performance of the history, physical exam, medical decision making, and the department course for this patient. I have also personally directed, reviewed, and agree with the discharge instructions and disposition. Disposition/Present on Arrival - Present on Arrival History of DVT/PE: No History of Uncontrolled Diabetes: No Urinary Catheter: No History of Decub. Ulcer: No History Surgical Site Infection Following: Orthopedic Procedures - Disposition Forms: [employer] (Martiniquais)
[2019-02-19 19:45] LABS: BASO # 0.01 K/mm3 (0.0-2.0); BASO % 0.2 % (0.0-3.0); EOS # 0.1 (0.0-0.7); EOS % 1.9 % (1.5-5.0); HEMOGLOBIN 10.3 g/dL (14.0-18.0); LYMPH % 20.7 % (22.0-35.0); MEAN CELL VOLUME 88.1 fl (80.0-105.0); MEAN CORPUSCULAR HEMOGLOBIN 29.3 pg (25.0-35.0); MEAN CORPUSCULAR HGB CONC 33.2 g/dl (31.0-37.0); MEAN PLATELET VOLUME 8.3 fl (7.0-11.0); MONO # 0.4 (0.1-0.6); MONO % 8.9 % (1.0-6.0); RBC 3.52 10^6/uL (3.5-6.1); RED CELL DISTRIBUTION WIDTH 12.8 % (11.5-14.5); WHITE BLOOD COUNT 4.8 10^3/uL (4.5-11.0)
[2019-02-19 19:53] LABS: INR 1.28; PARTIAL THROMBOPLASTIN TIME 28.2 Seconds (26.9-38.3); PROTHROMBIN TIME 14.2 SECONDS (9.4-12.5)
[2019-02-19 20:07] LABS: ALBUMIN 3.2 g/dL (3.0-4.8); ALT/SGPT 11 U/L (7-56); AST/SGOT 21 U/L (17-59); BLOOD UREA NITROGEN 34 mg/dL (7-21); CALCIUM 8.8 mg/dL (8.4-10.5); GFR NON-AFRICAN AMERICAN 58
[2019-02-19 20:20] LABS: B-TYPE NATRIURETIC PEPTIDE 1490 pg/mL (0-450); TROPONIN I < 0.01 ng/mL
[2019-02-19 21:09] VITALS: O2SAT 100
--- NOTE | 2019-02-19 21:29 | ED PDOC ---
Physical Exam Vital Signs Temp Pulse Resp BP Pulse Ox 02/19/19 20:28 97.6 F 85 18 154/79 H 100 02/19/19 18:57 97.7 F 02/19/19 18:32 77 18 154/71 H 97 Medical Decision Making ED Course and Treatment: 02/19/19 21:29 Case endorsed to me by with lab results pending. 02/19/19 21:55 CT Head, reviewed by radiologist: IMPRESSION: 1. No acute intracranial abnormality. 2. Advanced age-appropriate cerebral and cerebellar atrophy. 3. Severe chronic microvascular disease. 4. Atherosclerotic vascular plaquing within the carotid siphons bilaterally. 5. Minimal sinusitis in the inferior medial left maxillary sinus. Electronically signed on Feb 19, 2019 8:47:39 PM EDT by: Ed Bain M.D., M.B.A., Certified By [employer] Trained MRI and CT Specialist CT Cervical Spine, reviewed by radiologist: IMPRESSION: 1. No acute cervical spine abnormality. 2. Evidence of degenerative disc disease at C3-4 and C4-5. 3. Advanced bilateral uncovertebral facet arthropathy at C3-4, C4-5, C5-6, C6- 7. 4. 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 5. Atherosclerotic vascular plaquing within the carotid bulbs bilaterally. 6. Moderate degenerative arthritic changes in the left TMJ. Electronically signed on Feb 19, 2019 9:06:08 PM EDT by: Ed Bain M.D., M.B.A., Certified By [employer] Trained MRI and CT Specialist 02/19/19 23:[address] neg for acute pathology pt w/o cardipulm co mplaints lungs cta. cxr neg. stable for dc. - Lab Interpretations Lab Results: PT 14.2 SECONDS (9.4-12.5) H 02/19/19 19:38 INR 1.28 02/19/19 19:38 APTT 28.2 Seconds (26.9-38.3) 02/19/19 19:38 Troponin I < 0.01 ng/mL 02/19/19 19:38 NT-Pro-B Natriuret Pep 1490 pg/mL (0-450) H 02/19/19 19:38 Total Bilirubin 0.7 mg/dL (0.2-1.3) 02/19/19 19:38 AST 21 U/L (17-59) 02/19/19 19:38 ALT 11 U/L (7-56) 02/19/19 19:38 Alkaline Phosphatase 56 U/L (38-126) 02/19/19 19:38 Total Protein 6.3 g/dL (5.8-8.3) 02/19/19 19:38 Albumin 3.2 g/dL (3.0-4.8) 02/19/19 19:38 Globulin 3.1 gm/dL 02/19/19 19:38 Albumin/Globulin Ratio 1.0 (1.1-1.8) L 02/19/19 19:38 - RAD Interpretation Radiology Orders: 02/19/19 18:51 CERVICAL SPINE W/O CONTRAST [CT] Stat HEAD W/O CONTRAST [CT] Stat CHEST ONE VIEW [RAD] Stat Disposition/Present on Arrival - Present on Arrival Any Indicators Present on Arrival: No History of DVT/PE: No History of Uncontrolled Diabetes: No Urinary Catheter: No History of Decub. Ulcer: No History Surgical Site Infection Following: Orthopedic Procedures - Disposition Have Diagnosis and Disposition been Completed?: Yes Diagnosis: Fall, Head injury Disposition: HOME/ ROUTINE Disposition Time: 20:00 Patient Problems: Current Active Problems Problem Status Onset Fall Acute Head injury Acute Condition: STABLE Discharge Instructions (ExitCare): Head Injury Observation (DC), Getting Up From a Fall Additional Instructions: return to er with wrosening symptoms or concerns. Forms: [employer] (Irish)
[2019-02-20 00:17] VITALS: BP 148/70; PULSE 78; TEMP 97.7
--- NOTE | 2019-02-20 08:32 | CT ---
Date of service: 02/19/2019 PROCEDURE: CT Cervical Spine without contrast HISTORY: fall COMPARISON: 09/09/2014 TECHNIQUE: Axial computed tomography images were obtained of the cervical spine without the use of intravenous contrast. Coronal and sagittal reformatted images were created and reviewed. Radiation dose: Total exam DLP = 365.68 mGy-cm. This CT exam was performed using one or more of the following dose reduction techniques: Automated exposure control, adjustment of the mA and/or kV according to patient size, and/or use of iterative reconstruction technique. FINDINGS: VERTEBRAE: No fracture. Normal alignment. No destructive bony lesion. DISCS/SPINAL CANAL/NEURAL FORAMINA: There is multilevel disc degeneration and facet arthropathy with foraminal stenosis. PARASPINAL SOFT TISSUES: Unremarkable. OTHER FINDINGS: The report concurs with the preliminary [facility] report IMPRESSION: No acute fracture
--- NOTE | 2019-02-20 08:32 | CT ---
Date of service: 02/19/2019 PROCEDURE: CT HEAD WITHOUT CONTRAST. HISTORY: headache COMPARISON: 02/15/2016 TECHNIQUE: Axial computed tomography images were obtained through the head/brain without intravenous contrast. Radiation dose: Total exam DLP = 1203.36 mGy-cm. This CT exam was performed using one or more of the following dose reduction techniques: Automated exposure control, adjustment of the mA and/or kV according to patient size, and/or use of iterative reconstruction technique. FINDINGS: HEMORRHAGE: No intracranial hemorrhage. BRAIN: No mass effect or edema. Severe chronic microvascular changes in the periventricular white matter. VENTRICLES: Unremarkable. No hydrocephalus. CALVARIUM: Unremarkable. PARANASAL SINUSES: Unremarkable as visualized. No significant inflammatory changes. MASTOID AIR CELLS: Unremarkable as visualized. No inflammatory changes. OTHER FINDINGS: The report concurs with the preliminary [facility] report IMPRESSION: No acute intracranial findings
--- NOTE | 2019-02-20 11:03 | RAD ---
Date of service: 02/19/2019 PROCEDURE: CHEST RADIOGRAPH, 1 VIEW HISTORY: sob COMPARISON: 09/29/2017 FINDINGS: LUNGS: Clear. PLEURA: No pneumothorax or pleural fluid seen. CARDIOVASCULAR: No aortic atherosclerotic calcification present. Normal. OSSEOUS STRUCTURES: No significant abnormalities. VISUALIZED UPPER ABDOMEN: Normal. OTHER FINDINGS: None. IMPRESSION: No active disease.
--- NOTE | 2019-02-20 19:29 | CARD ---
APPROVED REPORT Date of service: 02/19/2019 EKG Measurement Heart [id number] <Conclusion> Normal sinus rhythm Normal ECG
== END 2019-02-19 21:30 | disposition home or self-care (01) ==
LOC: ED 18:31
DX: S09.90XA Unspecified injury of head, initial encounter (principal); W19.XXXA Unspecified fall, initial encounter